=== PATIENT | female | born 1965 | race Caucasian/White ===

== ENCOUNTER → 2016-08-08 | Outpatient (CLI) | payer OTHER ==
--- NOTE | ~2016-08-08 | MY11 ---
[facility] A Service of [facility] RADIOLOGY TEXT RESULTS PATIENT: DAISHA MAE LOCATION: [facility] : 67 UNIT #: [id number] AGE: [address]: Gee Rubio MD SEX: F ORDER DR: [id number] [facility] [address] [place], [place] [address] [id number] O MR#: [id number] Acc #: [id number] NAME: DAISHA MAE : 1965 SEX: F STUDY DATE/TIME: 08/08/2016 13:17 UNIT: [facility] ROOM: STUDY DESCRIPTION: MY Mammogram Screening Dig Jun Attending Physician: Gee Rubio M.D. Referring Physician: Gee Rubio M.D. Ordering Physician: Gee Rubio M.D. Primary Care Physician: Gee Rubio M.D. MEDICAL IMAGING REPORT This report is preliminary unless electronic signature is present EXAM Digital screening mammogram 08/08/2016 HISTORY 51-year-old woman no risk elevation. Annual screen. COMPARISON STUDIES Comparison 01/13/2008, 10/08/2013, 06/28/2015 FINDINGS Digital imaging of each breast was completed utilizing screening protocol. Review includes FDA-approved CAD device. Breast parenchyma is heterogeneously dense with a mild diffuse small nodular pattern. Subareolar duct prominence is again noted. There is an occasional calcification projecting upper outer quadrant left breast which is stable. I see no interval occurring mass and no suspicious architectural deformity. IMPRESSION Stable benign mammogram. Annual screening recommended. BIRADS II Patients over the age of 40 are entered into a reminder system with target due date for the next mammogram. A result letter will also be sent to the patient. BIRADS: 2 - Benign finding Dictated by... Anthony King M.D. THIS IS AN ELECTRONICALLY VERIFIED REPORT Anthony King M.D. at 08/09/2016 8:04 AM [facility] A Service of [facility] RADIOLOGY TEXT RESULTS PATIENT: DA[facility]HA [facility]E [id number] [birth year] UNIT #: [id number] AGE: [address]: Gee Rubio MD SEX: F ORDER DR: JUS/lucas TD: 08/08/2016 17:34 JOB #: [id number] MEDICAL IMAGING REPORT COPY
== END | disposition home or self-care (01) ==
LOC: CWCC 12:58
DX: Z12.31 Encounter for screening mammogram for malignant neoplasm of breast (principal)
CPT/HCPCS: G0202